=== PATIENT | female | born 1965 | race Two or more races ===

== ENCOUNTER 2017-02-22 23:56 | Emergency (ER) | payer OTHER ==
[~2017-02-22] VITALS: Ht 162.6 cm; Wt 63.5 kg
[2017-02-23] MEDS ORDERED: IBUPROFEN 400 MG TABLET ONE (00:16)
--- NOTE | 2017-02-23 00:22 | NUR ---
PT BIB [employer] FOR AN OK TO BOOK. PT IS SPEAKING IN FULL SENTENCES. PT STATED THAT SHE FELT SHORT OF BREATH DUE TO THE FIRES. PT REQUESTED AN INHALER. PT IS ALSO C/O GONZALEZ. IS IN CUSTODY.
--- NOTE | 2017-02-23 00:23 | NUR ---
Patient discharged to [facility] IN CUSTODY in stable condition. Written and verbal after care instructions given. Patient verbalizes understanding of instruction. PT REC'D MEDICATION ORDERED. PT IS OK TO BOOK.
[2017-02-23 00:24] VITALS: BP 130/82
== END 2017-02-23 00:23 ==
LOC: ER 23:57
DX: J40 Bronchitis, not specified as acute or chronic (principal)
CPT/HCPCS: 99283; A4606; Z7610